=== PATIENT | female | born 1955 | race African-American/Black ===

== ENCOUNTER 2021-07-25 15:02 | Outpatient (CLI) | payer MEDICARE ==
[2021-07-25 17:20] LABS: Hemoglobin 12.1 g/dL (12.0-15.5)
[2021-07-25 17:41] LABS: Anion Gap 13 mmol/L (10-20); BUN (Urea Nitrogen) 14 mg/dL (9.8-20.1); Calc. Creatinine Clearance 0 mL/min (70-130); Carbon Dioxide 24 mmol/L (23-31); Chloride 107 mmol/L (98-107); Glucose 88 mg/dL (80-115); Potassium 3.7 mmol/L (3.5-5.1); Sodium 140 mmol/L (136-145)
[2021-07-26 11:28] LABS: SARS-CoV-2 PCR by NAA DETECTED (NotDetected)
== END 2021-07-25 15:03 | disposition home or self-care (01) ==
LOC: LABBT 15:02
PROVIDERS: ATTEND Specialist
DX: U07.1 COVID-19 (principal); Z01.818 Encounter for other preprocedural examination; S09.22XA Traumatic rupture of left ear drum, initial encounter
CPT/HCPCS: 80048; 85014; 85018; 93005; U0003; U0005; 93010

== ENCOUNTER 2022-12-01 16:01 | Outpatient (CLI) | payer OTHER | END 2022-12-01 16:02 | disposition home or self-care (01) | LOC: LABBT 16:01 | PROVIDERS: ATTEND Specialist | DX: Z01.818 Encounter for other preprocedural examination (principal); D05.12 Intraductal carcinoma in situ of left breast | CPT/HCPCS: 71046; 93005; 93010 ==

== ENCOUNTER 2023-08-17 13:48 | Outpatient (CLI) | payer OTHER | END 2023-08-17 13:49 | disposition home or self-care (01) | LOC: BICMAMMO 13:48 | PROVIDERS: ATTEND Internal Medicine | DX: N64.4 Mastodynia (principal); N63.20 Unspecified lump in the left breast, unspecified quadrant; Z98.890 Other specified postprocedural states | CPT/HCPCS: 77065; G0279 ==

== ENCOUNTER 2024-02-19 14:43 | Outpatient (CLI) | payer OTHER | END 2024-02-19 14:44 | disposition home or self-care (01) | LOC: BICMAMMO 14:43 | PROVIDERS: ATTEND Specialist | DX: Z08 Encounter for follow-up examination after completed treatment for malignant neoplasm (principal); Z85.3 Personal history of malignant neoplasm of breast | CPT/HCPCS: 77065; G0279 ==